=== PATIENT | female | born 1990 | race Caucasian/White ===

== ENCOUNTER → 2016-06-14 | Outpatient (CLI) | payer OTHER | LOC: MW.CHOBGYN 16:24 | PROVIDERS: ATTEND Advanced Practice Midwife | DX: Z34.90 Encounter for supervision of normal pregnancy, unspecified, unspecified trimester (principal); Z53.9 Procedure and treatment not carried out, unspecified reason ==

== ENCOUNTER → 2016-06-25 | Outpatient (CLI) | payer OTHER ==
--- NOTE | 2016-06-26 13:47 | US ---
EXAM DATE: 06/25/16 PATIENT'S AGE: 26 Patient: KIMBERLY MARIE Facility: [place], [place] Site . Site : 1992 Study: US OB Pelvis [id number] 2:41:06 PM Ordering Physician: Brad Coleman Final Report: INDICATION: 2nd trimester anatomical survey and dating. TECHNIQUE: Ultrasound OB pelvis transabdominal. Real-time nieves-scale imaging of the fetus was performed as well as color Doppler and spectral Doppler analysis of the umbilical artery. COMPARISON: None. FINDINGS: Sonographic imaging demonstrates a single living intrauterine gestation. Fetus has a cephalic orientation. The placenta lies anterior without evidence of placenta previa. Amniotic fluid volume appears normal. Cervix measures 3.3 cm. The composite ultrasound gestational age is calculated at 26 weeks 4 days with an estimated sonographic due date of September 27, 2016. The weight is estimated at 954 grams, the 32th percentile. The following biometric measurements were obtained: Biparietal diameter: 6.5 cm. Head circumference: 24.9 cm. Abdominal circumference: 22.3 cm. Femur length: 4.8 cm. On anatomic survey, there is a normal appearance of the cerebral ventricles, cisterna magna and cerebellum. The nose, lips, and facial profile appear normal. The cervical, thoracic and lumbar spines are well visualized and appear normal. There is a normal four-chamber heart and the left and right ventricular outflow tracts appear normal. diaphragm, stomach, kidneys and bladder appear normal. There is a normal three-vessel cord and cord insertion site. The four extremities appear normal. IMPRESSION: Single intrauterine measuring 26 weeks 4 days with estimated date of delivery September 27, 2016. Normal anatomical survey. Dictated by Luca Bond MD @ Jun 26 2016 9:29AM (Electronic Signature) Report Signed by Proxy and Original Signed Document filed in the Medical Record. ADAM
== END ==
LOC: MW.US 13:33
PROVIDERS: ATTEND Advanced Practice Midwife
DX: Z34.92 Encounter for supervision of normal pregnancy, unspecified, second trimester (principal); Z3A.26 26 weeks gestation of pregnancy
CPT/HCPCS: 76805; 76805-26

== ENCOUNTER → 2016-07-25 | Outpatient (CLI) | payer OTHER | LOC: MW.CHOBGYN 15:32 | PROVIDERS: ATTEND Advanced Practice Midwife | DX: Z34.90 Encounter for supervision of normal pregnancy, unspecified, unspecified trimester (principal) | CPT/HCPCS: 36415; 82950; 85027; 86850; 87491; 87591 ==

== ENCOUNTER 2016-09-11 05:20 | Inpatient (IN) | payer OTHER ==
[2016-09-11] MEDS ORDERED: Sodium Chloride 0.9% 2.5 ML Syringe FLUSH PRN (06:05)
[2016-09-11] MEDS ORDERED: Water For Irrigation,Sterile 1,000 ML Container IRR PRN (06:05)
[2016-09-11] MEDS ORDERED: Nalbuphine 10 MG/1 ML Vial IVPUSH PRN ×2 (06:05→13:59)
[2016-09-11] MEDS ORDERED: Misoprostol 200 MCG Tab PO PRN (06:05)
[2016-09-11] MEDS ORDERED: Lidocaine 1% 50 ML MDV INJECT PRN (06:05)
[2016-09-11] MEDS ORDERED: Butorphanol 1 MG/ML SDV IVPUSH PRN (06:05)
[2016-09-11] MEDS ORDERED: Carboprost Tromethamine 250 MCG/1 ML Amp IM PRN (06:05)
[2016-09-11] MEDS ORDERED: Methylergonovine 0.2 MG/1 ML Amp IM PRN (06:05)
[2016-09-11] MEDS ORDERED: Sodium Chloride 0.9% 10 ML Syringe FLUSH PRN (06:05)
[2016-09-11] MEDS ORDERED: Oxytocin/Lactated Ringers 30 UNIT/500 ML BAG IV SCH ×2 (06:15→09:00)
[2016-09-11] MEDS: Lactated Ringers 1,000 ML IV SCH ×2 (06:32→12:25)
--- NOTE | 2016-09-11 08:55 | PCM.LDHP ---
L&D History of Present Illness - General Date of Service: 09/11/16 Admit Problem/Dx: Patient Status Order with Admit Dx/Problem 09/11/16 05:50 Patient Status [ADT] Routine 09/11/16 06:05 Patient Status [ADT] Routine Admission Diagnosis/Problem Admission Diagnosis/Problem -related examination Source of Information: Patient History Limitations: Reports: No Limitations - History of Present Illness Improves with: Reports: None Worsens with: Reports: None Associated Symptoms: Reports: N - Related Data Allergies/Adverse Reactions: Allergies Allergy/AdvReac Type Severity Reaction Status Date / Time Sulfa (Sulfonamide Allergy Hives Verified 09/11/16 05:50 Antibiotics) 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: , Other (See Below) Other OB/BYN History: history of abnormal pap Social & Family History - Family History Family Medical History: Noncontributory - Tobacco Use Smoking Status *Q: Never Smoker - Recreational Drug Use Recreational Drug Use: No H&P Review of Systems - Review of Systems: Review Of Systems: See Below General: Reports: No Symptoms HEENT: Reports: No Symptoms Pulmonary: Reports: No Symptoms Cardiovascular: Reports: No Symptoms Gastrointestinal: Reports: No Symptoms Genitourinary: Reports: No Symptoms Musculoskeletal: Reports: No Symptoms Skin: Reports: No Symptoms Psychiatric: Reports: No Symptoms Neurological: Reports: No Symptoms Hematologic/Lymphatic: Reports: No Symptoms Immunologic: Reports: No Symptoms L&D Exam - Exam Exam: See Below - Vital Signs Weight: 79.832 kg - OB Specific Fundal Height In cm: 37 Contraction Intensity: Mild Movement: Active Heart Tones: Present Heart Rate (FHR) Variability: Moderate (6-25 bmp) Presentation: Vertex - Mcneill Score Mcneill Score Cervix Position: Midposition Mcneill Score Effacement: 31-50% Mcneill Score Dilation: 3-4 cm - Patient Data Lab Results Last 24 hrs: Laboratory Results - last 24 hr 09/11/16 09/11/16 09/11/16 Range/Units 05:45 06:10 06:10 WBC 9.47 (4.0-11.0) K/uL RBC 4.08 L (4.30-5.90) M/uL Hgb 10.4 L (12.0-16.0) g/dL Hct 32.3 L (36.0-46.0) % MCV 79.2 L (80.0-98.0) fL MCH 25.5 L (27.0-32.0) pg MCHC 32.2 (31.0-37.0) g/dL RDW Std Deviation 39.3 (28.0-62.0) fl RDW Coeff of Chapito 14 (11.0-15.0) % Plt Count 169 (150-400) K/uL MPV 11.70 (7.40-12.00) fL Nucleated RBC % 0.0 /100WBC Nucleated RBCs # 0 K/uL Membrane Rupture POSITIVE Blood Type A POSITIVE Antibody Screen NEGATIVE Result Diagrams: 09/11/16 06:10 Problem List Initiated/Reviewed/Updated: Yes Orders Last 24hrs: Active Orders 24 hr Category Date Time Status Patient Status [ADT] Routine ADT 09/11/16 06:05 Active Heart Tones [RC] CONTINUOUS Care 09/11/16 06:05 Active Non Stress Test [RC] PER UNIT ROUTINE Care 09/11/16 05:50 Active Non Stress Test [RC] PER UNIT ROUTINE Care 09/11/16 06:05 Active May Shower [RC] ASDIRECTED Care 09/11/16 06:05 Active Notify Provider [RC] PRN Care 09/11/16 06:05 Active Up ad Janel [RC] ASDIRECTED Care 09/11/16 05:50 Active Up ad Janel [RC] ASDIRECTED Care 09/11/16 06:05 Active Vaginal Exam [RC] Click To Edit Care 09/11/16 05:50 Active Vaginal Exam [RC] PRN Care 09/11/16 06:05 Active Vital Signs [RC] PER UNIT ROUTINE Care 09/11/16 05:50 Active Vital Signs [RC] PER UNIT ROUTINE Care 09/11/16 06:05 Active Butorphanol [Stadol] Med 09/11/16 06:05 Active 1 mg IVPUSH Q1H PRN Carboprost Tromethamine [Hemabate DS] Med 09/11/16 06:05 Active 250 mcg IM ASDIRECTED PRN Lactated Ringers [Ringers, Lactated] 1,000 ml Med 09/11/16 06:15 Active IV ASDIRECTED Lidocaine 1% [Xylocaine 1%] Med 09/11/16 06:05 Active 50 ml INJECT .ONCE PRN Methylergonovine [Methergine] Med 09/11/16 06:05 Active 0.2 mg IM ASDIRECTED PRN Misoprostol [Cytotec] Med 09/11/16 06:05 Active 200 mcg PO .ONCE PRN Oxytocin/Lactated Ringers [Pitocin in LR 30 Units/500 Med 09/11/16 06:15 Active ML] 30 unit in 500 ml IV TITRATE Oxytocin/Lactated Ringers [Pitocin in LR 30 Units/500 Med 09/11/16 09:00 Ordered ML] 30 unit in 500 ml IV TITRATE Sodium Chloride 0.9% [Saline Flush] Med 09/11/16 06:05 Active 10 ml FLUSH ASDIRECTED PRN Sodium Chloride 0.9% [Saline Flush] Med 09/11/16 06:05 Active 2.5 ml FLUSH ASDIRECTED PRN Water For Irrigation,Sterile [Sterile Water for Med 09/11/16 06:05 Active Irrigation] 1,000 ml IRR ASDIRECTED PRN Scalp Electrode [WOMSER] Per Unit Routine Oth 09/11/16 06:05 Ordered Peripheral IV Insertion Adult [OM.PC] Routine Oth 09/11/16 06:05 Ordered Resuscitation Status Routine Resus Stat 09/11/16 05:50 Ordered Medication Orders Butorphanol Tartrate (Stadol) 1 mg IVPUSH Q1H PRN PRN Reason: Pain Carboprost Tromethamine (Hemabate Ds) 250 mcg IM ASDIRECTED PRN PRN Reason: Post Hemorrhage Lactated Ringer's (Ringers, Lactated) 1,000 mls @ 150 mls/hr IV ASDIRECTED CHELITA Last Admin: 09/11/16 06:32 Dose: 150 mls/hr Oxytocin/Lactated Ringer's (Pitocin In Lr 30 Units/500 Ml) 30 unit in 500 mls @ 2 mls/hr IV TITRATE CHELITA; 2 MUNITS/MIN PRN Reason: Protocol Stop: 09/12/16 06:14 Oxytocin/Lactated Ringer's (Pitocin In Lr 30 Units/500 Ml) 30 unit in 500 mls @ 2 mls/hr IV TITRATE CHELITA; 2 MUNITS/MIN PRN Reason: Protocol Lidocaine HCl (Xylocaine 1%) 50 ml INJECT .ONCE PRN PRN Reason: Laceration repair Methylergonovine Maleate (Methergine) 0.2 mg IM ASDIRECTED PRN PRN Reason: Post Hemorrhage Misoprostol (Cytotec) 200 mcg PO .ONCE PRN PRN Reason: Post Hemorrhage Sodium Chloride (Saline Flush) 10 ml FLUSH ASDIRECTED PRN PRN Reason: Keep Vein Open Sodium Chloride (Saline Flush) 2.5 ml FLUSH ASDIRECTED PRN PRN Reason: Keep Vein Open Sterile Water (Sterile Water For Irrigation) 1,000 ml IRR ASDIRECTED PRN PRN Reason: delivery Assessment/Plan Comment:: Intrauterine at 37 weeks she is followed in the clinic 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 her GBS status is negative oh I'm planning to start her on low-dose Pitocin to stimulate her contraction and I am anticipating vaginal
[2016-09-11] MEDS ORDERED: Morphine PF 10 MG/10 ML SDV ONE (12:37)
[2016-09-11] MEDS ORDERED: Citric Acid/Sodium Citrate Solution 30 ML Cup PO ONE (12:43)
[2016-09-11] MEDS ORDERED: ceFAZolin 2 GM in Premix Bag 1 BAG IV ONE (12:44)
--- NOTE | 2016-09-11 12:44 | PCM.PREANE ---
Preanesthetic Assessment - Procedure Proposed Procedure: breech presentation - Anesthesia/Transfusion/Family Hx Anesthesia History: Prior Anesthesia Reaction Transfusion History: No Prior Transfusion(s) - Review of Systems Other: Reports: None - Physical Assessment NPO Status Date: 09/11/16 NPO Status Time: 12:00 (food at 0500 otherwise h20) Height: 5 ft 5 in Weight: 79.832 kg ASA Class: 2E Mental Status: Alert & Oriented x3 Airway Class: Mallampati = 1 Dentition: Reports: Normal Dentition ROM/Head Extension: Full - Lab Values: Laboratory Last Values WBC 9.47 K/uL (4.0-11.0) 09/11/16 06:10 RBC 4.08 M/uL (4.30-5.90) L 09/11/16 06:10 Hgb 10.4 g/dL (12.0-16.0) L 09/11/16 06:10 Hct 32.3 % (36.0-46.0) L 09/11/16 06:10 MCV 79.2 fL (80.0-98.0) L 09/11/16 06:10 MCH 25.5 pg (27.0-32.0) L 09/11/16 06:10 MCHC 32.2 g/dL (31.0-37.0) 09/11/16 06:10 RDW Std Deviation 39.3 fl (28.0-62.0) 09/11/16 06:10 RDW Coeff of Chapito 14 % (11.0-15.0) 09/11/16 06:10 Plt Count 169 K/uL (150-400) 09/11/16 06:10 MPV 11.70 fL (7.40-12.00) 09/11/16 06:10 Nucleated RBC % 0.0 /100WBC 09/11/16 06:10 Nucleated RBCs # 0 K/uL 09/11/16 06:10 Membrane Rupture POSITIVE 09/11/16 05:45 Blood Type A POSITIVE 09/11/16 06:10 Antibody Screen NEGATIVE 09/11/16 06:10 - Allergies Allergies/Adverse Reactions: Allergies Allergy/AdvReac Type Severity Reaction Status Date / Time Sulfa (Sulfonamide Allergy Hives Verified 09/11/16 05:50 Antibiotics) - Blood Blood Available: Yes Product(s) Available: PRBC - Acknowledgements Anesthesia Type Planned: Spinal Pt an Appropriate Candidate for the Planned Anesthesia: Yes Alternatives and Risks of Anesthesia Discussed w Pt/Guardian: Yes Pt/Guardian Understands and Agrees with Anesthesia Plan: Yes 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: , Other (See Below) Other OB/BYN History: history of abnormal pap - Past Surgical History HEENT Surgical History: Reports: Oral Surgery - SUBSTANCE USE Smoking Status *Q: Never Smoker Recreational Drug Use History: No - CURRENT (IN HOUSE) MEDS Current Meds: Current Medications Butorphanol Tartrate (Stadol) 1 mg IVPUSH Q1H PRN PRN Reason: Pain Carboprost Tromethamine (Hemabate Ds) 250 mcg IM ASDIRECTED PRN PRN Reason: Post Hemorrhage Lactated Ringer's (Ringers, Lactated) 1,000 mls @ 150 mls/hr IV ASDIRECTED CHELITA Last Admin: 09/11/16 12:25 Dose: 999 mls/hr Oxytocin/Lactated Ringer's (Pitocin In Lr 30 Units/500 Ml) 30 unit in 500 mls @ 2 mls/hr IV TITRATE CHELITA; 2 MUNITS/MIN PRN Reason: Protocol Stop: 09/12/16 06:14 Oxytocin/Lactated Ringer's (Pitocin In Lr 30 Units/500 Ml) 30 unit in 500 mls @ 2 mls/hr IV TITRATE CHELITA; 2 MUNITS/MIN PRN Reason: Protocol Last Titration: 09/11/16 12:12 Dose: 0 munits/min, 0 mls/hr Lidocaine HCl (Xylocaine 1%) 50 ml INJECT .ONCE PRN PRN Reason: Laceration repair Methylergonovine Maleate (Methergine) 0.2 mg IM ASDIRECTED PRN PRN Reason: Post Hemorrhage Misoprostol (Cytotec) 200 mcg PO .ONCE PRN PRN Reason: Post Hemorrhage Sodium Chloride (Saline Flush) 10 ml FLUSH ASDIRECTED PRN PRN Reason: Keep Vein Open Sodium Chloride (Saline Flush) 2.5 ml FLUSH ASDIRECTED PRN PRN Reason: Keep Vein Open Sterile Water (Sterile Water For Irrigation) 1,000 ml IRR ASDIRECTED PRN PRN Reason: delivery Discontinued Medications Morphine Sulfate (Duramorph Pf) Confirm Administered Dose 10 mg .ROUTE .STK-MED ONE Stop: 09/11/16 12:38 Nalbuphine HCl (Nubain) 10 mg IVPUSH Q1H PRN PRN Reason: Pain (severe 7-10) Stop: 09/11/16 08:06
--- NOTE | 2016-09-11 13:01 | US ---
EXAMINATION: Transabdominal obstetric ultrasound HISTORY: Positioning COMPARISON: 06/25/2016 TECHNIQUE: Grayscale, spectral Doppler images obtained. FINDINGS: There is a single live intrauterine in a breech position. The cervix measures ap proximately 2.5 cm. The heart rate is 130 bpm. IMPRESSION: 1. Single live intrauterine in a breech position.
[2016-09-11] MEDS ORDERED: ePHEDrine 50 MG/ML SDV ONE (13:05)
[2016-09-11] MEDS ORDERED: Octyl 2-Cyanoacrylate 1 Tube ONE ×2 (13:36→13:38)
[2016-09-11] MEDS ORDERED: Ondansetron 4 MG/2 ML SDV IV PRN (13:42)
[2016-09-11] MEDS ORDERED: Lanolin 100% Cream 7 GM Tube TOP PRN (13:42)
[2016-09-11] MEDS ORDERED: Acetaminophen/oxyCODONE 325-5 MG Tab PO PRN ×2 (13:42→13:59)
[2016-09-11] MEDS ORDERED: Bisacodyl 10 MG Supp RECTAL PRN (13:42)
[2016-09-11] MEDS ORDERED: diphenhydrAMINE 50 MG/ML SDV IVPUSH PRN ×2 (13:42→13:59)
[2016-09-11] MEDS ORDERED: Lactated Ringers 1,000 ML IV SCH (13:45)
--- NOTE | 2016-09-11 13:46 | PCM.OPNOTE ---
- General Post-Op/Procedure Note Date of Surgery/Procedure: 09/11/16 Operative Procedure(s): Primary C/section. Breech presentation Pre Op Diagnosis: Term , Breech Post-Op Diagnosis: Same Anesthesia Technique: Spinal Primary Surgeon: Shimon Castelan EBL in mLs: 600 Complications: None Condition: Good
[2016-09-11] MEDS ORDERED: Oxytocin 10 Units/1 ML SDV ONE (13:47)
--- NOTE | 2016-09-11 13:58 | PCM.POSTAN ---
POST ANESTHESIA ASSESSMENT - MENTAL STATUS Mental Status: alert, oriented - RESPIRATORY Respiratory Status: respiratory rate WNL, airway patent, O2 saturation stable - CARDIOVASCULAR CV Status: pulse rate WNL, blood pressure stable - GASTROINTESTINAL GI Status: no symptoms - PAIN Pain Score: 0 - POST OP HYDRATION Hydration Status: adequate & stable
[2016-09-11] MEDS ORDERED: Naloxone 0.4 MG/ML Syringe IVPUSH PRN (13:59)
[2016-09-11] MEDS ORDERED: fentaNYL 100 MCG/2 ML SDV IVPUSH PRN (13:59)
[2016-09-11] MEDS: Ketorolac 30 MG/ML SDV IVPUSH SCH ×2 (14:17→20:37)
--- NOTE | 2016-09-11 18:47 | OR ---
SURGEON: Shimon Castelan MD DATE OF PROCEDURE: 09/11/2016 PREOPERATIVE DIAGNOSIS: Intrauterine of 37 to 38 weeks, spontaneous rupture of the membrane, and breech presentation. POSTOPERATIVE DIAGNOSES: Intrauterine of 37 to 38 weeks, spontaneous rupture of the membrane, and breech presentation. OPERATION PERFORMED: Primary low transverse section. HOME SPECIALIST: OR tech. ANESTHESIA: Spinal, Kalee Lee and Dr. Bran. ESTIMATED BLOOD LOSS: 600 mL. COMPLICATIONS: None. FINDINGS: Viable male fetus in a breech presentation and score reported to be 7 and 9. INDICATIONS FOR SURGERY: The patient is term. She had spontaneous rupture of the membrane. She started in labor on her own and when she was 4-5 cm, pelvic examination revealed that it is malpresentation and it is most likely breech presentation. That was confirmed by the ultrasound. Because the patient in active labor and is not a candidate for external version, a decision was made to do a primary low transverse section. PROCEDURE IN DETAIL: The patient was brought to the OR, properly identified, and after adequate level of spinal anesthesia. Low transverse Pfannenstiel skin incision was done. The Azalia's fascia and rectus fascia was opened in the direction of the incision. The 2 recti muscles were and peritoneal cavity was entered. Bladder flap was raised in the usual manner pushing the bladder away from the lower uterine segment. Low transverse uterine incision was done and extended manually. Hand and fetus were in breech presentation, delivered without any problem, handed to the individual pension adviser, who was present at the time of the delivery. The score was reported to be 7 and 9. The placenta delivered spontaneous, complete, and intact and repair of the lower uterine segment was done with 2-0 Vicryl continuous interlocking in 2 layers. Reperitonealization done with 3-0 Vicryl continuous and then the peritoneal cavity evacuated completely from all blood and blood clot and closed with 3-0 Vicryl continuous. The rectus fascia was closed with #1 PDS double strand continuous and the Azalia's fascia with 3-0 Vicryl continuous and the skin was closed skin clips Insorb and Dermabond. Instrument and sponge count was correct. The patient tolerated the procedure well and went to recovery room in stable and general condition. NOEMI / ANNABELLE /[id number]
[2016-09-11] MEDS: Docusate Sodium 100 MG Cap PO SCH (20:37)
--- NOTE | 2016-09-12 01:20 | PCM48HPAN ---
Post Anesthesia Note - EVALUATION WITHIN 48HRS OF ANESTHETIC Vital Signs in Normal Range: Yes Patient Participated in Evaluation: Yes Respiratory Function Stable: Yes Airway Patent: Yes Cardiovascular Function Stable: Yes Hydration Status Stable: Yes Pain Control Satisfactory: Yes Nausea and Vomiting Control Satisfactory: Yes Mental Status Recovered: Yes
[2016-09-12] MEDS: Ketorolac 30 MG/ML SDV IVPUSH SCH ×3 (02:29→13:47)
[2016-09-12] MEDS: Docusate Sodium 100 MG Cap PO SCH ×2 (08:26→20:04)
--- NOTE | 2016-09-12 09:07 | PCM.PNPP ---
- General Info Date of Service: 09/12/16 Functional Status: Reports: pain controlled - Review of Systems General: Reports: No Symptoms HEENT: Reports: no symptoms Pulmonary: Reports: no symptoms Cardiovascular: Reports: No Symptoms Gastrointestinal: Reports: No symptoms Genitourinary: Reports: no symptoms Musculoskeletal: Reports: no symptoms Skin: Reports: no symptoms Neurological: Reports: No Symptoms Psychiatric: Reports: no symptoms - Patient Data Vital Signs - most recent: Last Vital Signs Temp 36.6 C 09/12/16 04:00 Pulse 71 09/12/16 04:00 Resp 16 09/12/16 06:00 BP 113/57 L 09/12/16 04:00 Pulse Ox 98 09/12/16 06:00 Weight - most recent: 79.832 kg I&O - last 24 hours: Intake & Output 09/11/16 09/12/16 09/12/16 22:59 06:59 14:59 Intake Total 400 2000 Output Total 750 2100 Balance -350 -100 Lab Results - last 24 hrs: Laboratory Results - last 24 hr 09/12/16 Range/Units 05:32 Hgb 9.4 L (12.0-16.0) g/dL Hct 29.9 L (36.0-46.0) % Med Orders - Current: Current Medications Bisacodyl (Dulcolax) 10 mg RECTAL .ONCE PRN PRN Reason: Constipation Butorphanol Tartrate (Stadol) 1 mg IVPUSH Q1H PRN PRN Reason: Pain Carboprost Tromethamine (Hemabate Ds) 250 mcg IM ASDIRECTED PRN PRN Reason: Post Hemorrhage Diphenhydramine HCl (Benadryl) 25 mg IVPUSH Q6H PRN PRN Reason: Itching or Nausea Diphenhydramine HCl (Benadryl) 25 mg IVPUSH Q4H PRN PRN Reason: Itching Stop: 09/12/16 14:00 Docusate Sodium (Colace) 100 mg PO BID CHELITA Last Admin: 09/12/16 08:26 Dose: 100 mg Emollient Ointment (Lansinoh Hpa) 0 gm TOP ASDIRECTED PRN PRN Reason: Sore Nipples Fentanyl (Sublimaze) 25 - 50 mcg IVPUSH Q30M PRN PRN Reason: Pain Lactated Ringer's (Ringers, Lactated) 1,000 mls @ 150 mls/hr IV ASDIRECTED [facility] Last Admin: 09/11/16 12:25 Dose: 999 mls/hr Oxytocin/Lactated Ringer's (Pitocin In Lr 30 Units/500 Ml) 30 unit in 500 mls @ 2 mls/hr IV TITRATE CHELITA; 2 MUNITS/MIN PRN Reason: Protocol Last Titration: 09/11/16 12:12 Dose: 0 munits/min, 0 mls/hr Lactated Ringer's (Ringers, Lactated) 1,000 mls @ 125 mls/hr IV ASDIRECTED [facility] Last Admin: 09/12/16 00:14 Dose: 125 mls/hr Ibuprofen (Motrin) 800 mg PO Q8H PRN PRN Reason: mild pain or fever Ketorolac Tromethamine (Toradol) 30 mg IVPUSH Q6H [facility] Stop: 09/12/16 13:46 Last Admin: 09/12/16 08:26 Dose: 30 mg Lidocaine HCl (Xylocaine 1%) 50 ml INJECT .ONCE PRN PRN Reason: Laceration repair Methylergonovine Maleate (Methergine) 0.2 mg IM ASDIRECTED PRN PRN Reason: Post Hemorrhage Misoprostol (Cytotec) 200 mcg PO .ONCE PRN PRN Reason: Post Hemorrhage Nalbuphine HCl (Nubain) 5 mg IVPUSH Q3H PRN PRN Reason: Pruritis Stop: 09/12/16 14:00 Last Admin: 09/11/16 18:00 Dose: 5 mg Naloxone HCl (Narcan) 0.1 mg IVPUSH ONETIME PRN PRN Reason: Other Stop: 09/12/16 14:01 Ondansetron HCl (Zofran) 4 mg IV Q4H PRN PRN Reason: Nausea/Vomiting Last Admin: 09/11/16 20:07 Dose: 4 mg Oxycodone/Acetaminophen (Percocet 325-5 Mg) 1 tab PO Q4H PRN PRN Reason: Pain (moderate 4-6) Oxycodone/Acetaminophen (Percocet 325-5 Mg) 2 tab PO Q4H PRN PRN Reason: Pain (moderate 4-6) Oxycodone/Acetaminophen (Percocet 325-5 Mg) 1 - 2 tab PO Q6H PRN PRN Reason: Pain Stop: 09/13/16 14:00 Sodium Chloride (Saline Flush) 10 ml FLUSH ASDIRECTED PRN PRN Reason: Keep Vein Open Sodium Chloride (Saline Flush) 2.5 ml FLUSH ASDIRECTED PRN PRN Reason: Keep Vein Open Sterile Water (Sterile Water For Irrigation) 1,000 ml IRR ASDIRECTED PRN PRN Reason: delivery Discontinued Medications Citric Acid/Sodium Citrate (Bicitra Solution) 30 ml PO ONETIME ONE Stop: 09/11/16 12:44 Ephedrine Sulfate (Ephedrine Sulfate) Confirm Administered Dose 50 mg .ROUTE .STK-MED ONE Stop: 09/11/16 13:06 Oxytocin/Lactated Ringer's (Pitocin In Lr 30 Units/500 Ml) 30 unit in 500 mls @ 2 mls/hr IV TITRATE CHELITA; 2 MUNITS/MIN PRN Reason: Protocol Stop: 09/12/16 06:14 Cefazolin Sodium/Dextrose 2 gm (/ Premix) 50 mls @ 100 mls/hr IV ONETIME ONE Stop: 09/11/16 13:13 Morphine Sulfate (Duramorph Pf) Confirm Administered Dose 10 mg .ROUTE .STK-MED ONE Stop: 09/11/16 12:38 Nalbuphine HCl (Nubain) 10 mg IVPUSH Q1H PRN PRN Reason: Pain (severe 7-10) Stop: 09/11/16 08:06 Octyl Cyanoacrylate (Dermabond Advance) Confirm Administered Dose 1 applic .ROUTE .STK-MED ONE Stop: 09/11/16 13:37 Octyl Cyanoacrylate (Dermabond Advance) Confirm Administered Dose 1 applic .ROUTE .STK-MED ONE Stop: 09/11/16 13:39 Oxytocin (Pitocin) Confirm Administered Dose 20 unit .ROUTE .STK-MED ONE Stop: 09/11/16 13:48 - Infant Interaction Disposition, : [place] in Room with Family Infant Interaction: Holding Infant Infant Feeding: Attempted ; Nursed Fair/Poor Support Person: - Recovery Exam Fundal Tone: Firm Fundal Level: 1 Fingerbreadths Below Umbilicus Fundal Placement: Midline Lochia Amount: Scant Lochia Color: Rubra/Red Perineum Description: Intact, Minimal Bruising/Swelling Episiotomy/Laceration: Approximated Bladder Status: Indwelling Catheter in Place Urinary Elimination: Indwelling Catheter - Exam General: alert, oriented HEENT: Pupils equal Neck: supple Lungs: Clear to auscultation, Normal respiratory effort Cardiovascular: Regular Rate, Regular Rhythm Abdomen: bowel sounds present, soft, no tenderness, no distension Extremities: no edema Skin: warm, dry, intact Wound/Incisions: healing well Neurological: no new focal deficit Psy/Mental Status: alert, normal affect, normal mood - Problem List Review Problem List Initiated/Reviewed/Updated: Yes - My Orders Last 24 Hours: My Active Orders 09/11/16 09:00 Oxytocin/Lactated Ringers [Pitocin in LR 30 Units/500 ML] 30 unit in 500 ml IV TITRATE 09/11/16 13:42 Patient Status [ADT] Routine Ambulate [RC] PER UNIT ROUTINE Communication Order [RC] PER UNIT ROUTINE Communication Order [RC] Per Unit Routine May Shower [RC] ASDIRECTED RT Incentive Spirometry [RC] Q2HWA Acetaminophen/oxyCODONE [Percocet 325-5 MG] 1 tab PO Q4H PRN Acetaminophen/oxyCODONE [Percocet 325-5 MG] 2 tab PO Q4H PRN Bisacodyl [Dulcolax] 10 mg RECTAL .ONCE PRN Ibuprofen [Motrin] 800 mg PO Q8H PRN Lanolin [Lansinoh HPA] See Dose Instructions TOP ASDIRECTED PRN Ondansetron [Zofran] 4 mg IV Q4H PRN diphenhydrAMINE [Benadryl] 25 mg IVPUSH Q6H PRN Assess Lochia [WOMSER] Per Unit Routine Assess Uterine Involution [WOMSER] Per Unit Routine Breast Pump [WOMSER] Per Unit Routine Peripheral IV Discontinue [OM.PC] Routine Sequential Compression Device [OM.PC] Per Unit Routine 09/11/16 13:43 Antiembolic Devices [RC] PER UNIT ROUTINE 09/11/16 13:45 Ketorolac [Toradol] 30 mg IVPUSH Q6H Lactated Ringers [Ringers, Lactated] 1,000 ml IV ASDIRECTED 09/11/16 21:00 Docusate Sodium [Colace] 100 mg PO BID 09/11/16 Dinner Regular Diet [DIET] - Assessment Assessment:: S/P C/section postopday1 doing well will send home in am. 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 her GBS status is negative oh I'm planning to start her on low-dose Pitocin to stimulate her contraction and I am anticipating vaginal
[2016-09-12] MEDS ORDERED: Acetaminophen 500 MG Tab PO PRN (13:07)
[2016-09-12] MEDS: Ibuprofen 800 MG Tab PO PRN (20:01)
[2016-09-12] MEDS: Acetaminophen/oxyCODONE 325-5 MG Tab PO PRN (20:03)
[2016-09-13] MEDS: Ibuprofen 800 MG Tab PO PRN (03:23)
[2016-09-13] MEDS: Acetaminophen/oxyCODONE 325-5 MG Tab PO PRN ×2 (03:24→08:16)
[2016-09-13] MEDS: Docusate Sodium 100 MG Cap PO SCH (08:17)
--- NOTE | 2016-09-13 08:24 | PCM.DCSUM1 ---
Discharge Summary - Hospital Course Free Text/Narrative:: Discharge home with infant. Follow up 10 days for incision check and 6 weeks for post exam. - Discharge Data Discharge Date: 09/13/16 Discharge Disposition: Home, Self-Care 01 Condition: Good - Patient Summary/Data Operative Procedure(s) Performed: Primary C/section. Breech presentation - Patient Instructions Diet: Usual Diet as Tolerated Activity: As Tolerated, Rest and Relax Today Driving: Do Not Drive Showering/Bathing: May Shower Wound/Incision Care: Keep Operative Site/Wound Site Clean and Dry Notify Provider of: Fever, Increased Pain, Swelling and Redness, Drainage, Nausea and/or Vomiting Other/Special Instructions: Discharge home with infant. Follow up 10 days for incision check and 6 weeks for post exam. - Discharge Plan Referrals: [facility] [Outside] Virginia Salinas CNM [Primary Care Provider] - (1 week- September 17 @ 9:30am w/ Virginia Salinas 6 week- October 23 @ 9:30am w/ Virginia Salinas) - General Info Date of Service: 09/13/16 Functional Status: Reports: pain controlled, tolerating diet, ambulating, urinating - Review of Systems General: Reports: No Symptoms HEENT: Reports: no symptoms Pulmonary: Reports: no symptoms Cardiovascular: Reports: No Symptoms Gastrointestinal: Reports: No symptoms Genitourinary: Reports: no symptoms Musculoskeletal: Reports: no symptoms Skin: Reports: no symptoms Neurological: Reports: No Symptoms Psychiatric: Reports: no symptoms - Patient Data Vitals - Most Recent: Last Vital Signs Temp 36.4 C 09/13/16 04:39 Pulse 66 09/13/16 04:39 Resp 15 09/13/16 04:39 BP 101/64 09/13/16 04:39 Pulse Ox 100 09/13/16 04:39 Weight - Most Recent: 79.832 kg Med Orders - Current: Current Medications Acetaminophen (Tylenol Extra Strength) 1,000 mg PO Q6H PRN PRN Reason: Headache Last Admin: 09/13/16 08:17 Dose: 1,000 mg Bisacodyl (Dulcolax) 10 mg RECTAL .ONCE PRN PRN Reason: Constipation Butorphanol Tartrate (Stadol) 1 mg IVPUSH Q1H PRN PRN Reason: Pain Carboprost Tromethamine (Hemabate Ds) 250 mcg IM ASDIRECTED PRN PRN Reason: Post Hemorrhage Diphenhydramine HCl (Benadryl) 25 mg IVPUSH Q6H PRN PRN Reason: Itching or Nausea Docusate Sodium (Colace) 100 mg PO BID [facility] Last Admin: 09/13/16 08:17 Dose: 100 mg Emollient Ointment (Lansinoh Hpa) 0 gm TOP ASDIRECTED PRN PRN Reason: Sore Nipples Fentanyl (Sublimaze) 25 - 50 mcg IVPUSH Q30M PRN PRN Reason: Pain Lactated Ringer's (Ringers, Lactated) 1,000 mls @ 150 mls/hr IV ASDIRECTED [facility] Last Admin: 09/11/16 12:25 Dose: 999 mls/hr Oxytocin/Lactated Ringer's (Pitocin In Lr 30 Units/500 Ml) 30 unit in 500 mls @ 2 mls/hr IV TITRATE CHELITA; 2 MUNITS/MIN PRN Reason: Protocol Last Titration: 09/11/16 12:12 Dose: 0 munits/min, 0 mls/hr Lactated Ringer's (Ringers, Lactated) 1,000 mls @ 125 mls/hr IV ASDIRECTED [facility] Last Admin: 09/12/16 00:14 Dose: 125 mls/hr Ibuprofen (Motrin) 800 mg PO Q8H PRN PRN Reason: mild pain or fever Last Admin: 09/13/16 03:23 Dose: 800 mg Lidocaine HCl (Xylocaine 1%) 50 ml INJECT .ONCE PRN PRN Reason: Laceration repair Methylergonovine Maleate (Methergine) 0.2 mg IM ASDIRECTED PRN PRN Reason: Post Hemorrhage Misoprostol (Cytotec) 200 mcg PO .ONCE PRN PRN Reason: Post Hemorrhage Ondansetron HCl (Zofran) 4 mg IV Q4H PRN PRN Reason: Nausea/Vomiting Last Admin: 09/11/16 20:07 Dose: 4 mg Oxycodone/Acetaminophen (Percocet 325-5 Mg) 1 tab PO Q4H PRN PRN Reason: Pain (moderate 4-6) Last Admin: 09/13/16 08:16 Dose: 1 tab Oxycodone/Acetaminophen (Percocet 325-5 Mg) 2 tab PO Q4H PRN PRN Reason: Pain (moderate 4-6) Last Admin: 09/12/16 23:53 Dose: 2 tab Oxycodone/Acetaminophen (Percocet 325-5 Mg) 1 - 2 tab PO Q6H PRN PRN Reason: Pain Stop: 09/13/16 14:00 Sodium Chloride (Saline Flush) 10 ml FLUSH ASDIRECTED PRN PRN Reason: Keep Vein Open Sodium Chloride (Saline Flush) 2.5 ml FLUSH ASDIRECTED PRN PRN Reason: Keep Vein Open Sterile Water (Sterile Water For Irrigation) 1,000 ml IRR ASDIRECTED PRN PRN Reason: delivery Discontinued Medications Citric Acid/Sodium Citrate (Bicitra Solution) 30 ml PO ONETIME ONE Stop: 09/11/16 12:44 Diphenhydramine HCl (Benadryl) 25 mg IVPUSH Q4H PRN PRN Reason: Itching Stop: 09/12/16 14:00 Ephedrine Sulfate (Ephedrine Sulfate) Confirm Administered Dose 50 mg .ROUTE .STK-MED ONE Stop: 09/11/16 13:06 Oxytocin/Lactated Ringer's (Pitocin In Lr 30 Units/500 Ml) 30 unit in 500 mls @ 2 mls/hr IV TITRATE CHELITA; 2 MUNITS/MIN PRN Reason: Protocol Stop: 09/12/16 06:14 Cefazolin Sodium/Dextrose 2 gm (/ Premix) 50 mls @ 100 mls/hr IV ONETIME ONE Stop: 09/11/16 13:13 Ketorolac Tromethamine (Toradol) 30 mg IVPUSH Q6H CHELITA Stop: 09/12/16 13:46 Last Admin: 09/12/16 13:47 Dose: 30 mg Morphine Sulfate (Duramorph Pf) Confirm Administered Dose 10 mg .ROUTE .STK-MED ONE Stop: 09/11/16 12:38 Nalbuphine HCl (Nubain) 10 mg IVPUSH Q1H PRN PRN Reason: Pain (severe 7-10) Stop: 09/11/16 08:06 Nalbuphine HCl (Nubain) 5 mg IVPUSH Q3H PRN PRN Reason: Pruritis Stop: 09/12/16 14:00 Last Admin: 09/11/16 18:00 Dose: 5 mg Naloxone HCl (Narcan) 0.1 mg IVPUSH ONETIME PRN PRN Reason: Other Stop: 09/12/16 14:01 Octyl Cyanoacrylate (Dermabond Advance) Confirm Administered Dose 1 applic .ROUTE .STK-MED ONE Stop: 09/11/16 13:37 Octyl Cyanoacrylate (Dermabond Advance) Confirm Administered Dose 1 applic .ROUTE .STK-MED ONE Stop: 09/11/16 13:39 Oxytocin (Pitocin) Confirm Administered Dose 20 unit .ROUTE .STK-MED ONE Stop: 09/11/16 13:48 - Exam General: Reports: alert, oriented, cooperative, no acute distress Lungs: Reports: Normal respiratory effort Abdomen: Reports: soft, no tenderness, no distension (Female) Exam: Vaginal Bleeding Rectal (Female) Exam: Deferred Back Exam: Reports: Full Range of Motion Extremities: Reports: no edema, no tenderness/swelling, no calf tenderness Skin: Reports: warm, dry, intact Wound/Incisions: Reports: healing well, no drainage Neurological: Reports: no new focal deficit, normal speech, normal tone Psy/Mental Status: Reports: alert, normal affect, normal mood *Q Meaningful Use (DIS) - VTE *Q VTE Criteria *Q: - Stroke *Q Stroke Criteria *Q: - AMI *Q AMI Criteria *Q:
[2016-09-13 08:25] VITALS: BP 102/70
== END 2016-09-13 11:12 | disposition home or self-care (01) | DRG 766 ==
LOC: MW.OB 05:20 → MW.OBCHECK 05:20 → MW.OB 06:05 → OBSVTOIN 13:18 → MW.OB 15:38
PROVIDERS: ADMIT Obstetrics & Gynecology; ATTEND Obstetrics & Gynecology
PROC: 10D00Z1 Extraction of Products of Conception, Low, Open Approach (ICD-10-PCS; principal; 2016-09-11)
DX: O42.02 Full-term premature rupture of membranes, onset of labor within 24 hours of rupture (principal); O32.1XX0 Maternal care for breech presentation, not applicable or unspecified; Z3A.37 37 weeks gestation of pregnancy; Z37.0 Single live birth
CPT/HCPCS: 01961; 36415; 51703; 76815; 76815-26; 84112; 85014; 85018; 85027; 86850; 86900; 86901; A9270-GY; J1885; J2270; J2300; J2405; J2590; J7120